=== PATIENT | female | born 1985 | race American Indian/Alaskan Native ===

== ENCOUNTER 2020-01-03 23:01 | Emergency (ER) | payer MEDICAID, SELFPAY ==
[2020-01-03] MEDS ORDERED: Amoxicillin 500 MG Cap PO ONE ×2 (23:02→23:49)
[2020-01-03 23:19] VITALS: BP 144/91; PULSE 111
--- NOTE | 2020-01-03 23:30 | EDM.PDOC ---
ED HPI GENERAL MEDICAL PROBLEM - General Chief Complaint: ENT Problem Stated Complaint: TOOTHACHE Time Seen by Provider: 01/03/20 23:30 Source of Information: Reports: Patient, RN, RN Notes Reviewed History Limitations: Reports: No Limitations - History of Present Illness INITIAL COMMENTS - FREE TEXT/NARRATIVE: 34-year-old female patient presents to ER with complaint of left upper cheek/tooth pain. She states the pain is been present for 2 days. Denies trouble in this area of her mouth in the past. Denies fever chills, nausea or vomiting. Patient states she is living in a retirement house. States she has used Tylenol for pain with only minimal help. States she has history of meth use but has been greater than a year ago. Onset: Gradual Oral/Mouth Pain Score (Numeric/FACES): 10 - Related Data Allergies Allergy/AdvReac Type Severity Reaction Status Date / Time venom-honey bee Allergy Edema Verified 02/20/16 00:48 [bee venom (honey bee)] Home Meds: Home Meds . [No Known Home Meds] 02/20/16 [History] Past Medical History HEENT History: Reports: Allergic Rhinitis Cardiovascular History: Reports: Hypertension Other Cardiovascular History: hx. of preeclampsia with pregnancies Respiratory History: Reports: None Gastrointestinal History: Reports: None Genitourinary History: Reports: UTI, Recurrent PRICE ECONOMIST History: Reports: , Other (See Below) Other PRICE ECONOMIST History: C/S X3 Musculoskeletal History: Reports: None Neurological History: Reports: None Psychiatric History: Reports: ADHD, Developmental Delay Endocrine/Metabolic History: Reports: Diabetes, Gestational, Diabetes, Type II, Obesity/BMI 30+ Hematologic History: Reports: Other (See Below) Other Hematologic History: HELLP syndrome Dermatologic History: Reports: None - Infectious Disease History Infectious Disease History: Reports: Herpes - Past Surgical History HEENT Surgical History: Reports: None Female Surgical History: Reports: Section Endocrine Surgical History: Reports: None Social & Family History - Family History Endocrine/Metabolic: Reports: Diabetes, Type I, Other (See Below) Other Endocrine/Metabolic Family History: pt states "my dad was on insulin and not sure when he started" Immunologic: Reports: None Dermatologic: Reports: None Oncologic: Reports: None - Tobacco Use Tobacco Use Status *Q: Current Every Day Tobacco User Years of Tobacco use: 20 Packs/Tins Daily: 1 - Caffeine Use Caffeine Use: Reports: Coffee - Recreational Drug Use Recreational Drug Use: No - Living Situation & Occupation Living situation: Reports: Single, with Significant Other, with Family Occupation: Employed ED ROS GENERAL - Review of Systems Review Of Systems: Comprehensive ROS is negative, except as noted in HPI. ED EXAM, GENERAL - Physical Exam Exam: See Below Exam Limited By: No Limitations General Appearance: Alert, WD/WN, Moderate Distress Eye Exam: Bilateral Eye: EOMI, Normal Inspection Ears: Normal External Exam, Hearing Grossly Normal Nose: Normal Inspection Throat/Mouth: Other (Swelling to the inside of the left cheek, grooms on the upper jaw red and inflamed, teeth rubbing on the cheek on the left side.) Head: Atraumatic, Normocephalic Neck: Normal Inspection, Supple, Non-Tender, Full Range of Motion Respiratory/Chest: No Respiratory Distress, Lungs Clear, Normal Breath Sounds, No Accessory Muscle Use, Chest Non-Tender Cardiovascular: Normal Peripheral Pulses, Regular Rate, Rhythm, No Edema, No Gallop, No JVD, No Murmur, No Rub Peripheral Pulses: 2+: Radial (L), Radial (R) GI/Abdominal: Normal Bowel Sounds, Soft, Non-Tender (Female) Exam: Deferred Rectal (Female) Exam: Deferred Back Exam: Normal Inspection, Full Range of Motion, NT Extremities: Normal Inspection, Normal Range of Motion, Non-Tender, Normal Capillary Refill, No Pedal Edema Neurological: Alert, Oriented, CN II-XII Intact, Normal Cognition, Normal Reflexes, No Motor/Sensory Deficits Psychiatric: Anxious, Tearful Skin Exam: Warm, Dry, Intact, Normal Color, No Rash Lymphatic: No Adenopathy Course - Vital Signs Last Recorded V/S: Last Vital Signs Temp 99 F 01/03/20 23:12 Pulse 111 H 01/03/20 23:12 Resp 18 01/03/20 23:12 BP 144/91 H 01/03/20 23:12 Pulse Ox 100 01/03/20 23:12 - Orders/Labs/Meds Meds: Medications Discontinued Medications Generic Name Dose Route Start Last Admin Trade Name Freq PRN Reason Stop Dose Admin Hydrocodone Bitart/Acetaminophen 1 tab 01/03/20 23:48 01/04/20 00:07 [place] 325-10 Mg PO 01/03/20 23:49 1 tab ONETIME ONE Administration Amoxicillin 500 mg 01/03/20 23:49 01/04/20 00:07 Amoxil PO 01/03/20 23:50 500 mg ONETIME ONE Administration Amoxicillin Confirm 01/04/20 00:05 01/04/20 00:09 Amoxil Administered 01/04/20 00:06 Not Given Dose 1,500 mg .ROUTE .STK-MED ONE Departure - Departure Time of Disposition: 00:09 Disposition: Home, Self-Care 01 Condition: Fair Clinical Impression: Abscess, dental Cellulitis Qualifiers: Site of cellulitis: mouth Qualified Code(s): K12.2 - Cellulitis and abscess of mouth - Discharge Information *PRESCRIPTION DRUG MONITORING PROGRAM REVIEWED*: No *COPY OF PRESCRIPTION DRUG MONITORING REPORT IN PATIENT MONA: No Instructions: Dental Abscess, [id number], Cellulitis, Adult, [id number] Forms: ED Department Discharge Additional Instructions: May alternate heat and cold for comfort May use Tylenol and/or ibuprofen as directed for pain Swish with mouthwash twice daily Wednesday call for a dental appointment Sepsis Event Note (ED) - Evaluation Sepsis Screening Result: No Definite Risk - Focused Exam Vital Signs: Vital Signs Temp Pulse Resp BP Pulse Ox 01/03/20 23:12 99 F 111 H 18 144/91 H 100
[2020-01-03] MEDS ORDERED: Acetaminophen/HYDROcodone 325-10 MG Tab PO ONE (23:48)
[2020-01-04] MEDS ORDERED: Amoxicillin 500 MG Cap ONE (00:05)
== END 2020-01-04 00:10 | disposition home or self-care (01) ==
LOC: DL.ED 23:01
DX: K04.7 Periapical abscess without sinus (principal); K12.2 Cellulitis and abscess of mouth; I10 Essential (primary) hypertension; E11.9 Type 2 diabetes mellitus without complications; F17.210 Nicotine dependence, cigarettes, uncomplicated; E66.9 Obesity, unspecified; Z68.41 Body mass index [BMI] 40.0-44.9, adult; Z91.030 Bee allergy status
CPT/HCPCS: 99282; A9270

== ENCOUNTER 2020-08-17 21:48 | Emergency (ER) | payer MEDICAID ==
[2020-08-17] MEDS ORDERED: Diphtheria,Pertussis(Acell),Tetanus Vaccine 0.5 ML Syringe IM ONE (22:14)
[2020-08-17] MEDS ORDERED: Bacitracin Oint 1 GM U/D Packet TOP ONE (22:14)
[2020-08-17 22:20] VITALS: BP 109/89; PULSE 106
[2020-08-17 22:43] LABS: ANION GAP 15.7 mEq/L (7-13); CHLORIDE,CL 104 mmol/L (98-107); SODIUM,NA 143 mmol/L (136-145)
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
[2020-08-18] MEDS ORDERED: Acetaminophen/HYDROcodone 325-10 MG Tab PO ONE (00:32)
[2020-08-18] MEDS ORDERED: Ibuprofen 600 MG Tab PO ONE (00:35)
== END 2020-08-18 00:57 | disposition home or self-care (01) ==
LOC: DL.ED 21:48
DX: S52.571A Other intraarticular fracture of lower end of right radius, initial encounter for closed fracture (principal); S60.811A Abrasion of right wrist, initial encounter; S70.211A Abrasion, right hip, initial encounter; S50.311A Abrasion of right elbow, initial encounter; S00.211A Abrasion of right eyelid and periocular area, initial encounter; I10 Essential (primary) hypertension; Z91.030 Bee allergy status; E66.9 Obesity, unspecified; Z68.32 Body mass index [BMI] 32.0-32.9, adult; Z23 Encounter for immunization; Z72.0 Tobacco use; W22.8XXA Striking against or struck by other objects, initial encounter
CPT/HCPCS: 29125; 36415; 70450; 72125; 73090; 80053; 84703; 85025; 90471; 90715; 99285; A9270

== ENCOUNTER 2022-07-27 00:07 | Emergency (ER) | payer MEDICAID ==
[~2022-07-27 00:07] MED LIST: Lactated Ringers 1,000 ML IV ONE; Sodium Chloride 0.9% 10 ML Syringe FLUSH PRN
[2022-07-27] MEDS ORDERED: Ondansetron 4 MG/2 ML SDV IVPUSH ONE (00:25)
[2022-07-27] MEDS ORDERED: Ondansetron 4 MG/2 ML SDV ONE (00:28)
[2022-07-27 00:53] LABS: BASOPHILS PERCENT AUTO 0.2 % (0.0-1.0); EOSINOPHILS PERCENT AUTO 0.7 % (1.0-3.0); HEMOGLOBIN 7.3 g/dL (12.0-16.0); LYMPHOCYTES PERCENT AUTO 21.7 % (20.5-50.1); MEAN CORPUSCULAR HEMOGLOBIN 21.3 pg (27.0-34.0); MEAN CORPUSCULAR HGB CONC 29.2 g/dL (33.0-35.0); MEAN CORPUSCULAR VOLUME 73.1 fL (80-100); MONOCYTES PERCENT AUTO 6.3 % (2-8); NEUTROPHILS PERCENT AUTO 71.1 % (42.2-75.2); PLATELET COUNT,PLT 349 10^3/uL (150-450); RED BLOOD CELL COUNT 3.42 10^6/uL (4.2-5.4); WHITE BLOOD CELL COUNT,WBC 4.5 10^3/uL (5.0-10.0)
[2022-07-27 00:56] LABS: APPEARANCE,URINE CLOUDY (CLEAR); BILIRUBIN,URINE NEGATIVE (NEGATIVE); COLOR,URINE YELLOW (YELLOW); GLUCOSE,URINE NEGATIVE (NEGATIVE); KETONES,URINE NEGATIVE (NEGATIVE); LEUKOCYTE ESTERASE,URINE SMALL (NEGATIVE); NITRITE,URINE POSITIVE (NEGATIVE); OCCULT BLOOD,URINE TRACE-INTACT (NEGATIVE); PH,URINE 5.5 (5.0-9.0); PROTEIN,URINE NEGATIVE (NEGATIVE); UROBILINOGEN,URINE 0.2 mg/dL (0.2-1.0)
[2022-07-27 01:02] LABS: AMPHETAMINES,URINE POSITIVE (NEGATIVE); BARBITURATES,URINE NEGATIVE (NEGATIVE); BENZODIAZEPINE,URINE NEGATIVE (NEGATIVE); MDMA (ECSTASY), URINE POSITIVE (NEGATIVE); METHADONE,URINE NEGATIVE (NEGATIVE); METHAMPHETAMINES,URINE POSITIVE (NEGATIVE); OPIATES,URINE NEGATIVE (NEGATIVE); OXYCODONE,URINE NEGATIVE (NEGATIVE); PHENCYCLIDINE,URINE NEGATIVE (NEGATIVE); TCA,URINE NEGATIVE (NEGATIVE)
[2022-07-27 01:06] LABS: ALANINE AMINOTRANSFERASE,ALT 19 U/L (14-59); ALBUMIN 3.3 g/dL (3.4-5.0); ALKALINE PHOSPHATASE 69 U/L (46-116); ANION GAP 14.7 mEq/L (7-13); ASPARTATE AMNIOTRANSFERASE,AST 13 U/L (15-37); BILIRUBIN TOTAL 0.1 mg/dL (0.2-1.0); BLOOD UREA NITROGEN,BUN 11 mg/dL (7-18); BUN/CREATININE RATIO 14.7 (No establ ref range); CALCIUM 7.5 mg/dL (8.5-10.1); CARBON DIOXIDE,CO2 22 mmol/L (21-32); CHLORIDE,CL 107 mmol/L (98-107); CREATININE 0.75 mg/dL (0.55-1.02); ETHANOL BLOOD MEDICAL 260 mg/dL (0); GLUCOSE RANDOM 113 mg/dL (70-99); POTASSIUM,K 3.7 mmol/L (3.5-5.1); PROTEIN TOTAL,TP 6.5 g/dL (6.4-8.2); SODIUM,NA 140 mmol/L (136-145)
[2022-07-27 01:11] LABS: A/G RATIO 1.03; ESTIMATED GFR 105 mL/min (>=60)
[2022-07-27 01:17] LABS: AMORPHOUS SEDIMENT,URINE FEW /HPF (NOT SEEN); BACTERIA,URINE MANY /HPF (0-FEW/HPF); EPITHELIAL CELLS,URINE MODERATE /HPF (NOT SEEN); MUCUS,URINE MODERATE /LPF (NOT SEEN)
[2022-07-27 07:46] VITALS: BP 105/70; PULSE 59
== END 2022-07-27 07:34 | disposition home or self-care (01) ==
LOC: DL.ED 00:07
DX: F10.120 Alcohol abuse with intoxication, uncomplicated (principal); N30.01 Acute cystitis with hematuria; F12.90 Cannabis use, unspecified, uncomplicated; F15.10 Other stimulant abuse, uncomplicated; F19.10 Other psychoactive substance abuse, uncomplicated; D61.811 Other drug-induced pancytopenia; I10 Essential (primary) hypertension; Y90.8 Blood alcohol level of 240 mg/100 ml or more; Z91.030 Bee allergy status; E66.9 Obesity, unspecified
CPT/HCPCS: 36415; 71045; 80053; 80305; 80307; 81001; 83735; 85025; 87086; 87088; 87186; 96374; 99284; J2405; J7120; J3490